=== PATIENT | female | born 1985 | race Caucasian/White ===

== ENCOUNTER 2016-04-10 06:18 | Day surgery (SDC) | payer MEDICAID ==
[~2016-04-10] VITALS: Ht 167.6 cm; Wt 92.1 kg
[~2016-04-10 06:18] MED LIST: HYDROCODON-ACE1 EAC7 PO
[2016-04-10 06:51] VITALS: BP 121/65; Ht 167.6 cm; Wt 92.1 kg
[2016-04-10 07:29] LABS: HEMATOCRIT 39.8 % (36.0-48.0); HEMOGLOBIN 13.2 g/dL (12-16); MCH 30.8 pg (26.0-34.0); MCHC 33.2 g/dL (31.0-37.0); MCV 92.8 fL (80.0-100.0); RBC 4.29 10x6/uL (4.00-5.40); RDW 12.9 % (11.5-14.5); WBC 7.3 10x3/uL (4.8-10.8)
[2016-04-10] MEDS ORDERED: HYDROCODONE-APA1 TAB PO (09:50)
--- NOTE | 2016-04-10 11:35 | NUR ---
1100 CO NAUSEA ZOFRAN 4 MG IV GIVEN
--- NOTE | 2016-04-10 11:43 | NUR ---
DR POSEY IN ROOM TALKING WITH PT AND FAMILY
--- NOTE | 2016-04-10 11:52 | NUR ---
IV DC WITH CATHER TIP INTACT
--- NOTE | 2016-04-19 08:25 | OP ---
PATIENT NAME: MELE LAMAS MEDICAL RECORD: [id number] :81 LOCATION:[facility] ADMISSION DATE: SURGEON: LEOLA POSEY MD DATE OF OPERATION: 04/10/2016 PREOPERATIVE DIAGNOSIS: Right knee medial meniscus tear, possible anterior cruciate ligament tear. POSTOPERATIVE DIAGNOSIS: Right knee medial meniscus tear, possible anterior cruciate ligament tear. PROCEDURE PERFORMED: Right knee partial medial meniscectomy and a large bucket handle medial meniscus tear. SURGEON: Bryan Posey MD ANESTHESIA: General. CONDITION: The patient tolerated the procedure well, was transferred to the recovery room in stable condition at termination of the procedure. INDICATIONS: This is a 31-year-old female that has had a previous tear of her ACL. She has had significant amount of problems recently. Her MRI was consistent with possible ACL tear clearly showed a medial meniscus tear. We discussed the options. She wanted to proceed with arthroscopy. We discussed risks, benefits, and alternatives. She understood and wished to proceed. OPERATIVE REPORT: The patient was taken to the operating room, placed in a supine position. General anesthesia was obtained. The portal sites were marked and injected with 0.25% Marcaine with epinephrine. I established an anterolateral portal for the scope and inflow and superior medial portal for the outflow. The patellofemoral joint was inspected. 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 I did establish an anterior medial portal under direct visualization. At this juncture, it was noted that she had an extensive amount of medial meniscus folded into the joint line. This was macerated and torn significantly. I did end up having to take out proximally and the posterior half of the medial meniscus as the tear with significant enough that it did not appear to be repairable. Also prior to starting the case, I did a [place] exam under anesthesia. She did not have any significant pivot or [place]. We did see that she had ACL fibers intact, I therefore did not. She did have some portion that was partially re-torn. I did debride this. I did not take out the ACL. Taking her into a lateral position, she had a minor tear of the lateral meniscus, certainly nothing that would look to be causing any problem. The cartilage overall in the lateral side looked to be in good condition. I therefore most debrided the medial meniscus bucket handle tear and a small part of her ACL and then brought the case to a close it back to the pouch, removing any fragments that had accumulated there. We will get her started on range of motion and physical therapy and proceed from this juncture. TRANSINT:[id number] Voice Confirmation ID: [id number] DOCUMENT ID: [id number] OPERATIVE REPORT [id number] MELE LAMAS, LEOLA BALDERAS MD at 0825 CC: [id number] DICTATION DATE: 04/10/16 0949 [employer]ER: 04/10/16 1006 [facility] 04/10/16 [id number] [place] [address]
== END 2016-04-10 12:06 | disposition home or self-care (01) ==
LOC: D.OPS 06:18 → D.PAN 08:45 → D.OPS 08:45
PROVIDERS: Anesthesiology
DX: S83.211A Bucket-handle tear of medial meniscus, current injury, right knee, initial encounter (principal)

== ENCOUNTER 2017-02-21 08:44 | Emergency (ER) | payer SELFPAY ==
[2016-04-10 06:51] VITALS: BMI 32.8
[~2017-02-21 08:44] MED LIST changes: +HYDROCODONE-APA1 TAB PO
[2017-02-21 09:11] LABS: BASOPHILS 0 % (0-2); EOSINOPHILS 0.6 % (0-7); HEMATOCRIT 41.3 % (36.0-48.0); IMMATURE GRANULOCYTES 0.1 % (0-5); LYMPHOCYTES 24.6 % (15-50); MCH 31.4 pg (26.0-34.0); MCHC 33.9 g/dL (31.0-37.0); MCV 92.6 fL (80.0-100.0); MEAN PLATELET VOLUME 10.9 fL (7.4-10.4); MONOCYTES 5.1 % (2-11); NEUTROPHILS 69.6 % (40-80); PLATELET COUNT 219 10x3/uL (130-400); RBC 4.46 10x6/uL (4.00-5.40); RDW 12.3 % (11.5-14.5); WBC 6.9 10x3/uL (4.8-10.8)
[2017-02-21 09:23] LABS: HCG SERUM NEGATIVE (NEGATIVE)
[2017-02-21 09:24] LABS: APPEARANCE HAZY (CLEAR); BILIRUBIN NEGATIVE (NEGATIVE); COLOR YELLOW (YELLOW); GLUCOSE NEGATIVE (NEGATIVE); KETONE NEGATIVE (NEGATIVE); NITRITE NEGATIVE (NEGATIVE); PROTEIN NEGATIVE (NEGATIVE); SPECIFIC GRAVITY 1.015 (1.005-1.020); UROBILINOGEN NORMAL (NORMAL)
[2017-02-21 09:25] LABS: BACTERIA MODERATE /hpf (NONE SEEN); EPITHELIAL CELLS 0-5 /hpf (0-5); MUCUS <1+ /lpf (NONE SEEN); RED CELLS - URINE OCC /hpf (0-5); WHITE CELLS - URINE OCC /hpf (0-5)
[2017-02-21 09:30] LABS: ALBUMIN 3.8 g/dL (3.4-5.0); ALKALINE PHOSPHATASE 72 U/L (46-116); ALT (SGPT) 19 U/L (10-68); BILIRUBIN - TOTAL 0.43 mg/dL (0.2-1.3); CALC OSMOLALITY 273 mosm/kg (275-300); CALCIUM 8.6 mg/dL (8.5-10.1); CARBON DIOXIDE 24.2 mmol/L (21.0-32.0); CHLORIDE - SERUM 104 mmol/L (98-107); CREATININE - SERUM 0.8 mg/dL (0.6-1.3); GLUCOSE 116 mg/dL (74-106); POTASSIUM - SERUM 3.7 mmol/L (3.5-5.1); PROTEIN - SERUM 7.5 g/dL (6.4-8.2); SODIUM 137 mmol/L (136-145); UREA NITROGEN 10 mg/dL (7-18); eGFR NON AFRICAN AMERICAN 87 mL/min (90-120)
== END 2017-02-21 11:17 | disposition home or self-care (01) ==
LOC: D.ER 08:44
PROVIDERS: Emergency Medicine
DX: N39.0 Urinary tract infection, site not specified (principal); N83.209 Unspecified ovarian cyst, unspecified side

== ENCOUNTER 2020-08-12 12:12 | Emergency (ER) | payer MEDICAID ==
[~2020-08-12] VITALS: Ht 167.6 cm; Wt 71.8 kg
[2020-08-12 12:26] VITALS: BP 104/46; Ht 167.6 cm; Wt 71.8 kg
[2020-08-12 12:56] LABS: BASOPHILS 0.3 % (0-2); EOSINOPHILS 0.6 % (0-7); HEMATOCRIT 41.5 % (36.0-48.0); LYMPHOCYTES 32.3 % (15-50); MCH 31.7 pg (26.0-34.0); MCHC 33.7 g/dL (31.0-37.0); MEAN PLATELET VOLUME 8.6 fL (7.4-10.4); MONOCYTES 7.1 % (2-11); NEUTROPHILS 59.7 % (40-80); PLATELET COUNT 235 10x3/uL (130-400); RBC 4.42 10x6/uL (4.00-5.40); RDW 12.6 % (11.5-14.5); WBC 7.2 10x3/uL (4.8-10.8)
[2020-08-12 13:03] LABS: CALC OSMOLALITY 274 mosm/kg (275-300); CALCIUM 9.1 mg/dL (8.5-10.1); CARBON DIOXIDE 26.4 mmol/L (21.0-32.0); CHLORIDE - SERUM 101 mmol/L (98-107); CREATININE - SERUM 0.8 mg/dL (0.6-1.3); GLUCOSE 88 mg/dL (74-106); SODIUM 137 mmol/L (136-145); UREA NITROGEN 18 mg/dL (7-18); eGFR NON AFRICAN AMERICAN 85 mL/min (90-120)
[2020-08-12 13:09] LABS: ALBUMIN 4.2 g/dL (3.4-5.0); ALKALINE PHOSPHATASE 59 U/L (30-120); ALT (SGPT) 26 U/L (10-68); AMYLASE - SERUM 37 U/L (25-115); BILIRUBIN - TOTAL 0.44 mg/dL (0.2-1.3); LIPASE 59 U/L (73-393); PROTEIN - SERUM 7.3 g/dL (6.4-8.2)
[2020-08-12] MEDS ORDERED: DICLOFENAC SODI50 MG PO (16:08)
[2020-08-12] MEDS ORDERED: HYDROCODON-ACE1 EAC7 PO (16:12)
== END 2020-08-12 16:35 | disposition home or self-care (01) ==
LOC: D.ER 12:12
PROVIDERS: Emergency Medicine
DX: N83.201 Unspecified ovarian cyst, right side (principal); R10.31 Right lower quadrant pain; R11.0 Nausea

== ENCOUNTER 2020-09-14 13:11 | Emergency (ER) | payer MEDICAID ==
[~2020-09-14 13:11] MED LIST changes: +DICLOFENAC SODI50 MG PO
[2020-09-14 16:13] VITALS: Ht 167.6 cm
== END 2020-09-14 13:40 | disposition left against medical advice (07) ==
LOC: D.ER 13:11
DX: M25.562 Pain in left knee (principal)